=== PATIENT | female | born 1995 ===

== ENCOUNTER → 2016-12-19 | Day surgery (SDC) | payer OTHER ==
[2016-12-18 13:27] VITALS: Ht 167.6 cm; Wt 95.5 kg
[~2016-12-19] VITALS: Ht 167.6 cm; Wt 95.5 kg
[~2016-12-19] MED LIST: ATROPINE SULFATE 0.1 MG/ML 5ML SYR IV PRN; CEFAZOLIN 2000 MG/60 ML D5W IV SCH; EpHEDrine SULFATE INJ 50 MG/ML AMP IV PRN; FENTANYL CITRATE INJ 50 MCG/1 ML 2 ML VIAL IV PRN; FENTANYL CITRATE INJ 50 MCG/1 ML 2 ML VIAL ONE; GABA-112 PO; HYDR-5688 PO; HYDROCODONE/ACETAMOPHEN 5/325MG TAB PO PRN; LACTATED RINGER'S 1000ML 1,000 ML IV SCH; LIDOCAINE HCL 2% 2 ML VIAL (20MG/ML) ONE; LIDOCAINE HCL 2% LOCAL 20 ML VIAL ONE; MIDAZOLAM HCL 1 MG/ML 2ML VIAL ONE; ONDANSETRON INJ 2 MG/ML 2 ML VIAL IV PRN; ONDANSETRON INJ 2 MG/ML 2 ML VIAL ONE; PATIENT'S ALLERGY INFO NEEDS ENTERED SCH; PROPOFOL IV EMULSION 10 MG/ML 20 ML VIAL IV ONE; SODIUM CHLORIDE 0.9% 1000ML 1,000 ML IV SCH
--- NOTE | 2016-12-19 09:40 | History & Physical Bridge - [place] ---
H&P Re-Evaluation Bridge Note: I have examined the patient, reviewed the History & Physical and in the interval since the performance of the History & Physical I have noted the following changes of clinical significance: No changes noted
[2016-12-19 11:47] VITALS: TEMP 37
--- NOTE | 2016-12-19 11:56 | Discharge Instructions-SurgCtr ---
Discharge Instructions Date of Service Dec 19, 2016. Visit Reason for Visit: Right Carpal Tunnel Syndrome Discharge Discharge Diagnosis / Problem: SAME ABOVE Discharge Goals Goal(s): Decrease discomfort, Improve function Activity Recommendations Activity Limitations: as noted below Lifting Limitations: gradually increase as tolerated Exercise/Sports Limitations: gradually increase as tolerated Driving or Machine Use: resume 1 day after discharge Anesthesia . Post Anesthesia Instructions: If you have had General Anesthesia or IV Sedation: * Do not drive today. * Resume driving when surgeon permits. * Do not make important decisions or sign legal documents today. * Call surgeon for: 1. Temperature elevations greater than 101 degrees F. 2. Uncontrollable pain. 3. Excessive bleeding. 4. Persistent nausea and vomiting. 5. Medication intolerance (nausea, vomiting or rash). * For nausea and vomiting use only clear liquids such as: tea, soda, bouillon until nausea subsides, then gradually increase diet as tolerated. * If you have any concerns or questions, call your surgeon's office. If physician is unavailable and it is an emergency, call 911 or go to the nearest emergency room. . Instructions / Follow-Up Instructions / Follow-Up MEDICATIONS: * Resume previous medications unless instructed otherwise by your surgeon. * Always take pain medication on a full stomach or with food to avoid upset stomach. * Do not drink alcohol or drive while taking narcotics. * Ibuprofen or Tylenol may be taken if narcotic not needed. SPECIAL CARE INSTRUCTIONS: __ None _X_ Keep extremity elevated and iced x 48 hours; apply ice 20-30 minutes 8-10 times/day. May remove at night. __ Sling __24 hrs/day __ Remove at night __ Shoulder Immobilizer __ 24 hrs/day __ Remove at night _X_ Dressing __ Maintain until seen in office, may shower with plastic over site _X_ Remove dressings in 5 DAYS. MAY SHOWER SOONER IF COVERED WITH PLASTIC BAG. _X_ Cover incisions with band-aids after showering __ Do not remove steri-strips Call physician if chills or temperature rises above 102 degrees or pain unrelieved by prescribed pain medications at . . Diet Recommendations Home Diet: no limitations Fluid Restriction: None Procedures Procedures Performed: Right Carpal Tunnel Release Pending Studies Studies pending at discharge: no Work Instructions Return To Work: after follow-up (OR WHEN PAIN IS CONTROLLED. NO HEAVY LIFTING ) Lifting Limitations: no more than 10 pounds Medical Emergencies . Who to Call and When: Medical Emergencies: If at any time you feel your situation is an emergency, please call 911 immediately. . Non-Emergent Contact Non-Emergency issues call your: Primary Care Provider Call Non-Emergent contact if: you have a fever, temperature is above 101.5 . . "Provider Documentation" section prepared by Jasper Briones.
--- NOTE | 2016-12-19 11:57 | [facility] Post Operative Brief Note ---
Immediate Operative Summary Operative Date Dec 19, 2016. Pre-Operative Diagnosis Right Carpal Tunnel Syndrome Post-Operative Diagnosis Same Procedure(s) Performed Right Carpal Tunnel Release Surgeon Dr. Arredondo Form Carpenter Surgeon(s) None Estimated Blood Loss Minimal Findings as above Specimens None Complication(s) None Disposition Recovery Room / PACU
[2016-12-19 12:22] VITALS: BP 138/84; PULSE 92; O2SAT 95
--- NOTE | 2016-12-19 12:23 | OPERATIVE REPORT ---
DATE OF OPERATION: 12/19/2016 PREOPERATIVE DIAGNOSIS: Carpal tunnel syndrome of the right wrist. POSTOPERATIVE DIAGNOSIS: Same. PROCEDURE: Open right carpal tunnel release. SURGEON: Dr. Armando Arredondo. INDUSTRIAL WASTE TREATMENT TECHNICIAN: None. ANESTHESIA: Local with sedation. COMPLICATIONS: None. CONDITION: Stable to PACU. INDICATIONS: Kely is a pleasant 21-year-old female who presented to my office with chronic paresthesias in the median nerve distribution of her right hand. EMG study and clinical examination were diagnostic for carpal tunnel syndrome of the right wrist. After failing conservative treatment, she elected to undergo open release. OPERATION AND FINDINGS: On 12/19/2016 she arrived at [facility] for the above procedure. She was seen in the preoperative holding area and the operative extremity was identified and signed. She was given a preoperative antibiotic, taken back to the operating room, laid on the table in supine position and put under basic sedation. Right wrist was then prepped and draped in sterile fashion. Time-out was done and the patient and operative extremity was properly identified. A longitudinal incision was made directly over the transverse carpal ligament. Dissection was taken down through the palmar fascia with care not to disrupt the motor branch. The transverse carpal ligament was then identified. With the use of a knife and tenotomy scissors, the transverse carpal ligament was released. Care was taken to ensure complete proximal and distal release. The wound was then irrigated and closed with 4-0 nylon sutures in a mattress fashion. She was then placed in a soft dressing, extubated, transferred to a [facility] and taken to the postanesthesia care unit in stable condition. She tolerated the procedure well. I attest to the content of the Intraoperative Record and any orders documented therein. Any exceptio ns are noted below.
--- NOTE | 2016-12-19 12:59 | Anesthesia Progress Nt - [facility] ---
Anesthesia Post Op Note Date & Time Dec 19, 2016 at 13:00 Vital Signs Pain Intensity: 0 Vital Signs Past 12 Hours Date Time Temp Pulse Resp B/P Pulse Ox O2 Delivery O2 Flow Rate FiO2 12/19/16 12:22 92 138/84 95 Room Air 12/19/16 11:47 37.0 93 16 126/70 96 Room Air 12/19/16 09:26 36.6 92 18 136/83 98 Room Air Notes Mental Status: alert / awake / arousable, participated in evaluation Pt Amnestic to Procedure: Yes Nausea / Vomiting: adequately controlled Pain: adequately controlled Airway Patency, RR, SpO2: stable & adequate BP & HR: stable & adequate Hydration State: stable & adequate Anesthetic Complications: no major complications apparent
== END | disposition home or self-care (01) ==
LOC: X.SURG 09:16
PROVIDERS: ATTEND Orthopaedic Surgery
DX: G56.01 Carpal tunnel syndrome, right upper limb (principal); F17.210 Nicotine dependence, cigarettes, uncomplicated